=== PATIENT | male | born 2000 | race Two or more races ===

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

== ENCOUNTER 2024-02-04 00:47 | Emergency (ER) | payer OTHER ==
[~2024-02-04] VITALS: Ht 188 cm; Wt 98.4 kg
[2024-02-04] MEDS ORDERED: CLINDAMYCIN PHOSPHATE 150 MG/ML (600mg) IM STA (01:42)
== END 2024-02-04 02:07 | disposition home or self-care (01) ==
LOC: ER 00:47
DX: J03.90 Acute tonsillitis, unspecified (principal); R50.9 Fever, unspecified; Z88.0 Allergy status to penicillin

== ENCOUNTER 2024-07-23 11:48 | Emergency (ER) | payer OTHER ==
[~2024-07-23] VITALS: Ht 190.5 cm; Wt 95.3 kg
[2024-07-23 14:01] VITALS: BP 118/77; O2SAT 96
[2024-07-23] MEDS ORDERED: ACETAMINOPHEN 500 MG GEL..CAP PO ONE (14:30)
[2024-07-23] MEDS ORDERED: DEXAMETHASONE SODIUM PHOSPHATE 4 MG/ML VIAL IM ONE (14:30)
[2024-07-23 16:11] LABS: HEMATOCRIT 47.1 % (39.0-48.0); HEMOGLOBIN 16.4 g/dL (13-16.00); MEAN CELL VOLUME 93.3 fL (80.0-100.00); MEAN CORPUSCULAR HEMOGLOBIN 32.5 pg (27.00-32.0); MEAN CORPUSCULAR HGB CONC 34.8 g/dl (32.0-36.0); PLATELET COUNT 157 K/uL (150-450); RED BLOOD COUNT 5.05 M/uL (4.00-6.00); RED CELL DISTRIBUTION WIDTH 12.4 % (11.5-14.5)
[2024-07-23] MEDS ORDERED: ZITHROMAX500 MG PO (16:32)
[2024-07-23] MEDS ORDERED: ZYRTEC10 MG PO (16:32)
== END 2024-07-23 17:03 ==
LOC: ER 11:50
PROVIDERS: General Practice
DX: J00 Acute nasopharyngitis [common cold] (principal); Z88.8 Allergy status to other drugs, medicaments and biological substances; Z20.822 Contact with and (suspected) exposure to COVID-19